=== PATIENT | male | born 1950 | race Asian ===

== ENCOUNTER 2016-09-03 19:04 | Emergency (ER) | payer MEDICAID ==
[~2016-09-03] VITALS: Ht 167.6 cm; Wt 64.4 kg
[2016-09-03 19:22] VITALS: BP_SYST 142
[2016-09-03] MEDS ORDERED: METO-442 PO (19:26)
[2016-09-03] MEDS ORDERED: BACITRACIN 1 GM OINT TP ONE (20:15)
[2016-09-03 20:23] VITALS: BP_SYST 135
== END 2016-09-03 20:23 | disposition home or self-care (01) ==
LOC: SED 19:04 → EDBD 19:04 → SED 20:23
DX: S90.415A Abrasion, left lesser toe(s), initial encounter (principal); I10 Essential (primary) hypertension; Z86.73 Personal history of transient ischemic attack (TIA), and cerebral infarction without residual deficits; W22.8XXA Striking against or struck by other objects, initial encounter; Y93.89 Activity, other specified; Y92.89 Other specified places as the place of occurrence of the external cause; Y99.8 Other external cause status
CPT/HCPCS: 99284